=== PATIENT | male | born 1970 | race Two or more races ===

== ENCOUNTER 2021-04-22 20:01 | Observation (INO) | payer BC, OTHER ==
[~2021-04-22] VITALS: Ht 182.9 cm; Wt 135.9 kg
--- NOTE | 2021-04-22 20:25 | NUR ---
NIL X 1 WHEN CALLED FOR TRIAGE.
--- NOTE | 2021-04-22 20:32 | NUR ---
EKG DONE IN TRIAGE.
--- NOTE | 2021-04-22 20:42 | NUR ---
route sales trainee: patient to room from lobby.
[2021-04-22 21:02] LABS: MEAN CORPUSCULAR HEMOGLOBIN 29.1 pg (27.5-34.5); MEAN CORPUSCULAR HGB CONC 33.8 g/dL (33.2-36.2); MEAN PLATELET VOLUME 7.9 fL (7.4-10.4); PLATELET COUNT 171 x10^3/uL (130-400); RED BLOOD COUNT 5.14 x10^6/uL (4.38-5.82); RED CELL DISTRIBUTION WIDTH 13.9 % (9.4-14.8)
--- NOTE | 2021-04-22 21:04 | NUR ---
PT PRESENTS WITH C/O DIZZINESS, AND N/T ON LEFT SIDE OF BODY, SYMPTOMS SINCE THIS MORNING. PT PLACED ON ALL MONITORS. FALL PRECAUTIONS IN PLACE. SPOUSE AT BEDSIDE.
[2021-04-22 21:12] LABS: ALANINE AMINOTRANSFERASE 81 U/L (12-78); ALBUMIN 3.4 g/dL (3.4-5.0); ANION GAP 5 mmol/L (5-15); CALCIUM 8.2 mg/dL (8.5-10.1); CHLORIDE 104 mmol/L (98-107); CREATININE 0.91 mg/dL (0.7-1.3)
[2021-04-22 21:14] LABS: ALKALINE PHOSPHATASE 82 U/L (45-117); BILIRUBIN,TOTAL 0.5 mg/dL (0.2-1.0); TOTAL PROTEIN 7.2 g/dL (6.4-8.2)
[2021-04-22 21:31] LABS: <PLATELET ESTIMATE> ADEQUATE; <PLT MORPHOLOGY> NORMAL PLT MORPH; <RBC MORPHOLOGY> NORMAL; BASOS#(MANUAL) 0.14 x10^3/uL (0-0.1); BASOS% (MANUAL) 2 % (0-1); EOS#(MANUAL) 0.07 x10^3/uL (0.0-0.4); EOS% (MANUAL) 1 % (1-7); LYMPH#(MANUAL) 2.86 x10^3/uL (1-3.4); LYMPHS% (MANUAL) 42 % (22-44); MONOS#(MANUAL) 0.27 x10^3/uL (0.3-2.7); MONOS% (MANUAL) 4 % (2-9); REACTIVE LYMPHS # (MANUAL) 0.61 x10^3/uL (0-0); REACTIVE LYMPHS % (MANUAL) 9 % (0-0); SEG#(MANUAL) 2.86 x10^3/uL (1.8-6.8); SEGS% (MANUAL) 42 % (42-75)
[2021-04-22] MEDS ORDERED: MECLIZINE CHEWABLE 25 MG TAB ONE (22:26)
[2021-04-22] MEDS ORDERED: LABETALOL 5MG/ML, 20ML IVPush PRN (22:30)
[2021-04-22] MEDS ORDERED: ATORVASTATIN 40 MG TABLET PO SCH (22:30)
[2021-04-22] MEDS ORDERED: MELATONIN 5 MG TABLET PO PRN (22:30)
[2021-04-22] MEDS ORDERED: POLYETHYLENE GLYCOL 17 GM PACKET PO PRN (22:30)
[2021-04-22] MEDS ORDERED: ENOXAPARIN 40 MG/0.4 ML SQ SCH (22:30)
[2021-04-22] MEDS ORDERED: ACETAMINOPHEN 325 MG TABLET PO PRN (22:30)
[2021-04-22] MEDS ORDERED: ONDANSETRON 2MG/ML, 2ML IVPush PRN (22:30)
[2021-04-22] MEDS ORDERED: MECLIZINE CHEWABLE 25 MG TAB PO ONE (22:30)
[2021-04-22 23:53] VITALS: BP 133/86
[2021-04-23] MEDS: INSULIN LISPRO 100 UNITS/ML, PEN SQ-INSULIN SCH ×4 (00:50→17:31)
[2021-04-23 02:45] VITALS: BP 120/67
[2021-04-23 04:14] LABS: BASOPHILS % (AUTO) 0 % (0-1); EOSINOPHILS % (AUTO) 3 % (1-7); LYMPHOCYTES % (AUTO) 46 % (22-44); MEAN CORPUSCULAR HEMOGLOBIN 29.6 pg (27.5-34.5); MEAN CORPUSCULAR HGB CONC 34.5 g/dL (33.2-36.2); MEAN PLATELET VOLUME 8.1 fL (7.4-10.4); MONOCYTES % (AUTO) 6 % (2-9); NEUTROPHILS % (AUTO) 45 % (42-75); PLATELET COUNT 178 x10^3/uL (130-400); RED BLOOD COUNT 5.05 x10^6/uL (4.38-5.82); RED CELL DISTRIBUTION WIDTH 13.8 % (9.4-14.8)
[2021-04-23 04:22] LABS: ANION GAP 5 mmol/L (5-15); CALCIUM 8.2 mg/dL (8.5-10.1); CHLORIDE 105 mmol/L (98-107); CREATININE 0.83 mg/dL (0.7-1.3)
[2021-04-23 04:26] LABS: CHOL/HDL RATIO 8.2; CHOLESTEROL, TOTAL 196 mg/dL (140-239); HDL CHOL % 12 % (26-37); HDL CHOLESTEROL (DIRECT) 24 mg/dL (40-60); TRIGLYCERIDES 473 mg/dL (50-200)
[2021-04-23] MEDS ORDERED: ASPIRIN 81 MG TABLET EC PO SCH (06:00)
[2021-04-23 07:11] VITALS: BP 132/84
[2021-04-23 12:06] VITALS: BP 116/71
[2021-04-23] MEDS ORDERED: ATOR40TA78 PO (18:08)
== END 2021-04-23 20:00 | disposition home or self-care, planned readmission (81) ==
LOC: ED 21:46 → INTOOBSV 22:20 → EDIP 22:20 → 4EST 04-23 00:15
PROVIDERS: ADMIT Internal Medicine; ATTEND Internal Medicine
DX: R27.0 Ataxia, unspecified (principal); E88.81 Metabolic syndrome and other insulin resistance; E78.2 Mixed hyperlipidemia; R73.9 Hyperglycemia, unspecified; E66.01 Morbid (severe) obesity due to excess calories; R29.818 Other symptoms and signs involving the nervous system; H55.00 Unspecified nystagmus; Z86.73 Personal history of transient ischemic attack (TIA), and cerebral infarction without residual deficits; Z68.41 Body mass index [BMI] 40.0-44.9, adult; Z88.0 Allergy status to penicillin; Z79.899 Other long term (current) drug therapy
CPT/HCPCS: 36415; 70450; 70551; 80048; 80053; 80061; 82962; 83036; 85025; 96372; 97162; 97165; 99284; G0378; J1650; 93005